=== PATIENT | female | born 1980 | race Caucasian/White ===

== ENCOUNTER 2016-09-27 19:21 | Emergency (ER) | payer OTHER ==
[~2016-09-27] VITALS: Ht 157.5 cm; Wt 84.1 kg
[2016-09-27 19:24] VITALS: TEMP 36.8; Ht 157.5 cm; Wt 84.1 kg
--- NOTE | 2016-09-27 20:03 | DIAGNOSTIC IMAGING REPORT ---
LEFT FOOT 3 VIEWS HISTORY: Left foot pain. LEFT, EVAL FX COMPARISON: None. FINDINGS: There is no fracture or dislocation. Mild soft tissue swelling at the first MTP joint. No radiopaque foreign bodies. IMPRESSION: No fractures. Mild soft tissue swelling at the first MTP joint. Electronically signed by: Fransisco Callahan M.D. 09/27/2016 8:01 PM Dictated Date/Time: 09/27/2016 7:59 PM
--- NOTE | 2016-09-27 20:08 | EMERGENCY ROOM VISIT NOTE ---
ED Visit Note First contact with patient: 19:26 CHIEF COMPLAINT: Left foot injury this morning HISTORY OF PRESENT INJURY: Patient is a 36-year-old white female who presents to emergency department for evaluation of left foot pain after an injury earlier this morning. She was carrying her 4-year-old son down the steps in bare feet, when she slipped. She states that her feet bent over the edge of the step. She complains of pain primarily in the first metatarsal. She describes it as a constant, bruise like aching sensation. She is able to walk and bear weight. 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 She noted increased pain after her shift. She did not take any medications for her symptoms. No numbness or weakness. She denies any ankle pain. REVIEW OF SYSTEMS: Review of systems as per HPI. All other systems reviewed were negative. At least 6 systems reviewed. PMH: Electronic medical records are reviewed and summarized as above/below. See Problem List. SOCIAL HISTORY: The patient lives at home with her family. Employed. PHYSICAL EXAM: Vital Signs: Reviewed Nurse's notes. GENERAL: Alert, oriented and coherent, not in acute distress. Ankle/Foot: Affected lateral ankle not swollen or tender. There is slight dorsal soft tissue swelling and faint ecchymosis noted. She is tenderness to palpation over the great toe and first metatarsal. No pain over the Lisfranc joint. Range of motion limited secondary to pain. No deformity. The skin is intact. Foot is neurovascularly intact. EMERGENCY DEPARTMENT COURSE: X-ray of the left foot noted some soft tissue swelling, no evidence for acute fracture. Patient declined postoperative shoe. Conservative care measures were discussed. Medication reconciliation: I attest that I have personally reviewed the patient' s current medication list. Blood pressure screening : Patient was found to have normal blood pressure on screening and does not require follow-up. Differential diagnosis includes fracture, sprain, contusion, dislocation, among others. LEFT FOOT 3 VIEWS HISTORY: Left foot pain. LEFT, EVAL FX COMPARISON: None. FINDINGS: There is no fracture or dislocation. Mild soft tissue swelling at the first MTP joint. No radiopaque foreign bodies. IMPRESSION: No fractures. Mild soft tissue swelling at the first MTP joint. Problem List Medical Problems: (1) Abdominal pain Status: Resolved (2) Anxiety Status: Chronic (3) Anxiety as acute reaction to exceptional stress Status: Resolved (4) Bipolar disorder Status: Chronic (5) Closed head injury Status: Resolved (6) Common Migraine W/O Intractable Migraine Status: Chronic (7) Concussion Status: Resolved (8) Cough Status: Resolved (9) Headache Status: Resolved (10) Headache Status: Resolved (11) Headache Status: Resolved (12) Headache Status: Resolved (13) Hypertension Status: Chronic (14) Left otitis media Status: Resolved (15) major depressive disorder, recurrent, severe, with psychotic features Status: Chronic (16) Migraine Status: Resolved (17) Migraine Status: Resolved (18) Migraine Status: Resolved (19) Migraine Status: Resolved (20) Migraine Status: Resolved (21) Migraine Status: Resolved (22) Migraine Status: Resolved (23) Migraine Status: Resolved (24) Migraine Status: Resolved (25) Migraine Status: Resolved (26) Odontalgia Status: Resolved (27) Other and unspecified general psychiatric examination Status: Resolved (28) Pain, dental Status: Resolved (29) Sleep disorder Status: Resolved (30) Urinary tract infection Status: Resolved (31) Urinary tract infection Status: Resolved (32) Urinary tract infection Status: Resolved Current/Historical Medications No Active Prescriptions or Reported Meds Allergies Coded Allergies: Azithromycin (Verified Adverse Reaction, Unknown, hyperness, 12/18/15) Diphenhydramine (Verified Adverse Reaction, Unknown, anxiety/insomnia, 12/17) Vital Signs Date Time Temp Pulse Resp B/P (MAP) Pulse Ox O2 Delivery O2 Flow Rate FiO2 09/27/16 19:24 36.8 78 18 112/71 99 Room Air Departure Information Impression Primary Impression: Sprain of left foot Prescriptions No Active Prescriptions or Reported Meds Referrals No Doctor, Assigned (PCP) Patient Instructions [facility] Additional Instructions Ibuprofen(Motrin, Advil) may be used for fever or pain. Use 600mg every six hours as needed. Take with food. Avoid using more than 2400mg in a 24 hour period. Do not use 2400mg per day for more than three consecutive days without physician direction. Prolonged inappropriate use can lead to stomach upset or ulcers. This medication can be taken if you need to drive, work, or perform activities which may be dangerous when taking narcotic pain medication. (AND/OR) Acetaminophen(Tylenol) may be used for fever or pain. Use 1000mg every six hours as needed. Avoid using more than 3000mg in a 24 hour period. This medication can be taken if you need to drive, work, or perform activities which may be dangerous when taking narcotic pain medication. Ice compresses for 20 minutes at a time four times daily for 2-3 days. Wear a supportive shoe like a sneaker. Rest and elevate your injury. Continue current medications. Return to the ER immediately for any numbness, tingling, severe pain, extreme swelling in the extremity or as needed. Followup with your family doctor or orthopedic surgery if no improvement in 5-7 days.
[2016-09-27 20:16] VITALS: BP 116/72; PULSE 72; O2SAT 98
== END 2016-09-27 20:20 | disposition home or self-care (01) ==
LOC: C.EDB 19:22 → C.EDD 20:20
DX: S93.602A Unspecified sprain of left foot, initial encounter (principal); M79.672 Pain in left foot; W18.43XA Slipping, tripping and stumbling without falling due to stepping from one level to another, initial encounter; F41.9 Anxiety disorder, unspecified; F31.9 Bipolar disorder, unspecified